=== PATIENT | female | born 1985 | race Caucasian/White ===

== ENCOUNTER 2019-02-08 09:07 | Observation (INO) | payer OTHER ==
[2019-02-08] VITALS (17 sets, daily range): BP systolic 103–149; BP diastolic 72–85; PULSE 79–114; RESP 10–22; Ht 160 cm; Wt 87.9 kg
[~2019-02-08] VITALS: Ht 160 cm; Wt 87.9 kg
[~2019-02-08 09:07] MED LIST: PREN1TAB49 PO; VANCOMYCIN 1 GM 250 ML IVPB SCH
[2019-02-08] MEDS ORDERED: TRAZ-149 ORAL (10:22)
[2019-02-08] MEDS ORDERED: QUET100T PO (10:22)
[2019-02-08] MEDS: SOD CHLORIDE 0.9% 1,000 ML IV SCH ×3 (11:10→19:50)
[2019-02-08] MEDS ORDERED: BUPIVACAINE 0.25%/EPI (SDV) 30 ML INJ ONE (12:06)
--- NOTE | 2019-02-08 12:50 | PREAC ---
Date/Time of Note Date/Time of Note DATE: 02/08/19 TIME: 12:49 Anesthesia Eval and Record Evaluation Time Pre-Procedure Interview DATE: 02/08/19 TIME: 12:49 Age 33 Sex female NPO: 8 hrs Preoperative diagnosis gallstones Planned procedure lap choly Past Medical History Past Medical History: Includes Psych: Depression Surgery & Anesthesia Issues No known issue Meds Anticoagulation: No Beta Jeremias within 24 hr: No Reason Beta Jeremias not given: Pt. not on B-Jeremias Reported Medications Quetiapine Fumarate* (Seroquel*) 100 Mg Tablet, 100 MG PO HS, #30 TAB 02/08/19 Trazodone Hcl* (Desyrel*) 50 Mg Tab, 1 TAB ORAL QHS 02/08/19 Discontinued Reported Medications Vits W-Ca,Fe,Fa(<1MG) () 1 Tab Tablet, 1 TAB PO DAILY 11/06/11 Current Medications Vancomycin HCl 250 ml @ 125 mls/hr PREOP IVPB Last administered on 02/08/19at 11:12; Admin Dose 125 MLS/HR; Start 02/08/19 at 06:30; Stop 02/08/19 at 18:00 Sodium Chloride 1,000 ml @ 75 mls/hr [id number] IV Last administered on 02/08/19at 11:10; Admin Dose 75 MLS/HR; Start 02/08/19 at 06:30; Stop 02/08/19 at 20:00 Meds reviewed: Yes Allergies Coded Allergies: Penicillins (Verified Allergy, Mild, RASH, 02/08/19) Allergies Reviewed: Yes Labs/Studies Labs Reviewed: Reviewed by anesthesiologist test: Negative Pre-procedure Exam Last vitals Vital Signs Date Temp Pulse Resp B/P (MAP) Pulse Ox O2 O2 Flow FiO2 Time Delivery Rate 02/08/19 97.3 81 16 103/75 100 Room Air 10:31 (84) Airway: Adequate mouth opening, Adequate thyromental dist Mallampati: Mallampati III Teeth: Normal Lung: Normal Heart: Normal ASA Physical Status ASA physical status: 2 Emergency: None Pre-operative Attestations Prior to commencing anesthesia and surgery, the patient was re-evaluated, there was verification of: *The patient's identity *The results of appropriate recent lab work and preoperative vital signs *The above evaluation not changing prior to induction *Anesthetic plan, risk benefits, alternative and complications discussed with patient/family; questions answered; patient/family understands, accepts and wishes to proceed. CANDIDO DALTON DO Feb 08, 2019 12:50
--- NOTE | 2019-02-08 12:54 | HPN ---
Date/Time of Note Date/Time of Note DATE: 02/08/19 TIME: 12:53 Interval H&P Admission Note Pt. seen H&P reviewed: No system changes LETITIA JEFFERS MD Feb 08, 2019 12:54
[2019-02-08] MEDS ORDERED: ONDANSETRON 4 MG INJ IV PRN ×2 (13:00→15:30)
[2019-02-08] MEDS ORDERED: OXYCODONE/ACETAMINOPHEN (5/325) TAB PO PRN ×2 (13:00)
[2019-02-08] MEDS ORDERED: HYDROmorphONE 1 MG/5 ML IV SYRINGE IV PRN ×2 (13:00)
[2019-02-08] MEDS ORDERED: LIDOCAINE 2% (SDV) 5 ML INJ ONE (13:06)
[2019-02-08] MEDS ORDERED: ROCURONIUM 50 MG INJ ONE (13:06)
[2019-02-08] MEDS ORDERED: MIDAZOLAM 1 MG/ML 2 ML INJ ONE (13:06)
[2019-02-08] MEDS ORDERED: ROPIVACAINE 0.5 % 30 ML VIAL ONE (13:06)
[2019-02-08] MEDS ORDERED: PROPOFOL 20 ML ONE (13:06)
[2019-02-08] MEDS ORDERED: ROPIVACAINE 0.2% 20 ML VIAL ONE (13:17)
[2019-02-08] MEDS ORDERED: ONDANSETRON 4 MG INJ ONE (13:27)
[2019-02-08] MEDS ORDERED: FAMOTIDINE 20 MG INJ ONE (13:27)
[2019-02-08] MEDS ORDERED: FENTAnyl 50 MCG/ML VIAL ONE (14:22)
[2019-02-08] MEDS ORDERED: SUGAMMADEX SODIUM 200 MG/2 ML VIAL IV ONE (15:05)
[2019-02-08] MEDS ORDERED: LACTATED RINGER'S 1,000 ML IV SCH (15:09)
--- NOTE | 2019-02-08 15:20 | PAC ---
Date/Time of Note Date/Time of Note DATE: 02/08/19 TIME: 15:19 Post-Anesthesia Notes Post-Anesthesia Note Last documented vital signs Vital Signs Date Temp Pulse Resp B/P (MAP) Pulse Ox O2 O2 Flow FiO2 Time Delivery Rate 02/08/19 98 102 19 130/65 100 Room Air 1520 Activity: WNL Respiratory function: WNL Cardiovascular function: WNL Mental status: Baseline Pain reasonably controlled: Yes Hydration appropriate: Yes Nausea/Vomiting absent: Yes CANDIDO DALTON DO Feb 08, 2019 15:20
--- NOTE | 2019-02-08 15:25 | OPR ---
Date/Time of Note Date/Time of Note DATE: 02/08/19 TIME: 15:15 Operative Report Procedure Date: Feb 08, 2019 Preoperative Diagnosis Cholelithiasis/chronic cholecystitis Postoperative Diagnosis 1. Cholelithiasis/chronic cholecystitis 2. Peritoneal adhesions Operation/Procedure Performed 1. Laparoscopic cholecystectomy (modifier 22) 2. Laparoscopic lysis of adhesions Surgeon see signature line Rheumatology Specialist Cortes Lora MD Anesthesia Type: general Anesthesiologist: CANDIDO DALTON DO Estimated Blood Loss: 150 - 200 ml's Transfusion none Specimen Gallbladder. Biliary cultures Grafts/Implants none Complications none Pt Condition Post Procedure: stable Disposition: PACU Indications The patient is a obese 33-year-old female who presented to the office with right upper quadrant abdominal pain. The patient had clinical signs and symptoms of chronic cholecystitis and biliary colic which was confirmed via an ultrasound which showed the presence of gallstones. The patient was scheduled for laparoscopic cholecystectomy; possible open as definitive treatment to prevent further sequelae of gallstone disease which include but are not limited to: Gangrenous cholecystitis, choledocholithiasis, gallstone pancreatitis, ascending cholangitis, etc. All risks and benefits of the procedure including but not limited to: Wound infection, excessive bleeding, common bile duct injury, postoperative biliary leak, retained common bile duct stone, injury to intra- abdominal organs, conversion to open procedure, possible need for subsequent surgeries, etc. were all explained to the patient in full detail. She fully understood and wished to proceed with the procedure. Informed consent was therefore obtained. Procedure Description The patient was brought to the operating room and placed supine on the operating table. Bilateral sequential compression devices were placed on both lower extremities. A dose of broad-spectrum perioperative intravenous antibiotics was given. After the induction of smooth general endotracheal anesthesia the patient's abdomen was prepped and draped in the standard surgical fashion. A tap block was performed by the anesthesiologist prior to prepping the patient will be documented separately by him patient has a lower midline incision from prior surgery. After performance of the surgical timeout a 5 mm incision was made in the superior umbilicus and a Veress needle was used to access the intra- abdominal cavity atraumatically. Pneumoperitoneum was then obtained and the Veress needle was exchanged for a 5 mm trocar through which a 5 mm laparoscope was placed. Diagnostic laparoscopy showed adhesions of the omentum to the patient's prior lower midline incision. There also adhesions to the right upper quadrant in the area of our port placement. A 12 mm port was then placed under direct vision in the sub-xiphoid region. Laparoscopic lysis of adhesions was performed using the efrem to take down the adhesions in the right upper quadrant to enable for placement. Two 5 mm ports were then placed under direct vision in the right upper quadrant. All port sites were anesthetized with 0.25% Marcaine with epinephrine prior to incision. A distended gallbladder was identified in the right upper quadrant. It was thick-walled and erythematous sales and marketing assistant with severe chronic inflammation. There were dense adhesions of the omentum to the anterior surface of the gallbladder. These were tediously taken down using combination of blunt dissection and hook electrocautery. Using atraumatic graspers the gallbladder was then able to be grasped and retracted superiorly and laterally exposing the area of Hu's pouch. There was thick inflammatory adhesions and scarring in this area. Tedious dissection was done above that which is usual and customary for procedure of this type in order to identify the cystic duct structures. Gallbladder was then mobilized along its medial and lateral attachments through the liver in order to gain better exposure and mobility. After significant amount of time of tedious dissection above that which is usual and customary for procedure of this type the cystic duct was identified as it entered straight into the neck of the gallbladder. Cystic duct and common duct anatomy was confirmed multiple times using fluorescence imaging and indocyanine green dye. In the course of posterior dissection of the cystic duct the cystic artery was entered and bleeding was encountered. Most of the blood loss of the procedure was during this portion. Carefully, the bleeding from the cystic artery was controlled using hemoclips. Cystic duct was then circumferentially dissected free of surrounding tissues and clipped proximally and distally x 3 and transected using EndoShears. Cystic duct anatomy was confirmed prior to transection using fluorescence imaging and indocyanine green dye. The gallbladder was then dissected off the liver bed using electrocautery. Because of the chronic inflammation there was obliteration of the natural planes of the gallbladder to the liver bed. The posterior portion of the gallbladder was also intrahepatic. For these reasons, and amount of time which is in excess of that which is usual and customary for procedure of this type was needed to safely dissect the gallbladder off of the liver bed. Once completely free the gallbladder was placed in an Endo Catch bag and withdrawn through the subxiphoid port site and passed off the field as specimen. The subxiphoid port site had to be enlarged to accommodate the large size of the gallbladder. Hemostasis was inspected for and obtained on the liver bed using a combination of hook electrocautery and placement of fibrillar. The abdomen was then irrigated with several liters of warm normal saline and the irrigant returned crystal clear. The fascia of the subxiphoid port site was then reapproximated using a althea-close device. Pneumoperitoneum was then released and all remaining trochars were withdrawn under direct vision. The subcutaneous tissues were irrigated with more warm normal saline. The skin was then reapproximated using 4-0 Monocryl sutures in subcuticular fashion. The incisions were cleaned and Dermabond was applied to the incisions and the rowan ent was awoken from anesthesia and transported to the recovery room in stable condition. All counts were correct at the end of the case x 2. Again given the complexity of this procedure the presence of an attending surgeon sales and marketing assistant was required and an amount of time in excess which of that which is usual and customary for procedure of this type was needed to safely complete the procedure laparoscopically. Therefore, modifier 22 should be applied. LETITIA JEFFERS MD Feb 08, 2019 15:25
[2019-02-08] MEDS ORDERED: METOCLOPRAMIDE 10 MG INJ IV PRN (15:30)
[2019-02-08] MEDS ORDERED: metroNIDAZOLE 500 MG/NS (PMX) 100 ML IVPB SCH (15:30)
[2019-02-08] MEDS: HYDROmorphONE 1 MG/5 ML IV SYRINGE IV PRN ×2 (15:30→16:29)
[2019-02-08] MEDS ORDERED: GLUCOSE GEL 15 GRAM TUBE BUCCAL PRN (16:00)
[2019-02-08] MEDS ORDERED: GLUCAGON 1 MG INJ IM PRN (16:00)
[2019-02-08] MEDS ORDERED: DEXTROSE 50% 50 ML SYRINGE IV PRN ×2 (16:00)
[2019-02-08] MEDS ORDERED: GLUCOSE GEL 15 GRAM TUBE PO PRN ×2 (16:00)
[2019-02-08] MEDS: INSULIN ASPART [NOVOLOG] 3 ML PEN SC SCH ×2 (16:35→20:51)
[2019-02-08] MEDS: CIPROFLOXACIN 400MG/D5W 200 ML IVPB SCH (17:04)
[2019-02-08] MEDS: ACETAMINOPHEN 325 MG TAB PO PRN ×2 (17:39→21:12)
[2019-02-08] MEDS ORDERED: INSULIN ASPART [NOVOLOG] 3 ML PEN SC SCH (18:00)
[2019-02-08] MEDS: metroNIDAZOLE 500 MG/NS (PMX) 100 ML IVPB SCH (18:26)
[2019-02-08] MEDS ORDERED: HYDROCODONE/APAP (5/325) TAB PO PRN (18:30)
[2019-02-08] MEDS ORDERED: morphine 4 MG/ML VIAL IV PRN (18:30)
[2019-02-08] MEDS: FAMOTIDINE 20 MG TAB PO SCH (20:38)
[2019-02-08] MEDS: DOCUSATE SODIUM 100 MG CAP PO SCH (20:38)
[2019-02-09] MEDS ORDERED: ACCU-CHEK XX SCH (02:00)
[2019-02-09] MEDS: metroNIDAZOLE 500 MG/NS (PMX) 100 ML IVPB SCH ×2 (02:30→10:49)
[2019-02-09] MEDS: ACETAMINOPHEN 325 MG TAB PO PRN (02:53)
[2019-02-09] MEDS: CIPROFLOXACIN 400MG/D5W 200 ML IVPB SCH (03:50)
[2019-02-09] MEDS: HYDROCODONE/APAP (5/325) TAB PO PRN ×2 (06:40→10:45)
[2019-02-09] MEDS: INSULIN ASPART [NOVOLOG] 3 ML PEN SC SCH ×2 (07:50→12:48)
[2019-02-09 07:54] VITALS: BP 119/79; PULSE 79; RESP 18
[2019-02-09] MEDS: FAMOTIDINE 20 MG TAB PO SCH (08:43)
[2019-02-09] MEDS: DOCUSATE SODIUM 100 MG CAP PO SCH (08:43)
--- NOTE | 2019-02-09 09:26 | PN ---
Date/Time of Note Date/Time of Note DATE: 02/09/19 TIME: 09:23 Assessment/Plan Lines/Catheters IV Catheter Type (from Nrsg): Peripheral IV Assessment/Plan Assessment/Plan 33-year-old female status post laparoscopic cholecystectomy, laparoscopic lysis of adhesions postop day #1 * LFTs normal * Pain is controlled * Out of bed/incentive spirometry * Hep-Lock IV fluids * Surgically stable for discharge home. Follow-up in office in 2 weeks Subjective 24 Hr Interval Summary Stable overnight. Pain is now controlled. Tolerating diet. Afebrile. Hemodynamically stable Exam/Review of Systems Vital Signs Vitals Vital Signs Date Temp Pulse Resp B/P (MAP) Pulse Ox O2 O2 Flow FiO2 Time Delivery Rate 02/09/19 98.4 79 18 119/79 99 Room Air 07:54 (92) Intake and Output 02/08/19 02/08/19 02/09/19 1414:59 22:59 06:59 IntakeIntake Total 250 ml 3065 ml 1400 ml OutputOutput Total 200 ml BalanceBalance 250 ml 2865 ml 1400 ml Exam Free Text/Dictation GENERAL: Awake, alert, oriented x 3. No acute distress. SKIN: No jaundice. HEENT: PERRLA, EOMI, No Scleral Icterus NECK: Supple without JVD CARDIOVASCULAR: S1S2, regular rate and rhythm. No murmurs appreciated. RESPIRATORY: Clear to auscultation bilaterally. ABDOMEN: Soft, bowel sounds present, nondistended, appropriate incisional tenderness to palpation. No rebound or guarding INCISIONS: Clean, dry, intact EXTREMITIES: Free range of motion x 4. No cyanosis, edema, or clubbing. Results Result Diagram: 02/09/19 0425 02/09/19 0425 LETITIA JEFFERS MD Feb 09, 2019 09:26
--- NOTE | 2019-02-09 09:30 | DS ---
Date/Time of Note Date/Time of Note DATE: 02/09/19 TIME: 09:28 Discharge Summary Admission/Discharge Info Admit Date/Time Feb 08, 2019 at 15:29 Discharge Date/Time February 09, 2019 Discharge Diagnosis Cholelithiasis/chronic cholecystitis Patient Condition: Stable Procedures Laparoscopic cholecystectomy, laparoscopic lysis of adhesions Hx of Present Illness The patient is a obese 33-year-old female who presented to the office with right upper quadrant abdominal pain. The patient had clinical signs and symptoms of chronic cholecystitis and biliary colic which was confirmed via an ultrasound which showed the presence of gallstones. The patient was scheduled for laparoscopic cholecystectomy; possible open as definitive treatment to prevent further sequelae of gallstone disease. Hospital Course Patient underwent laparoscopic cholecystectomy, laparoscopic lysis of adhesions on the morning of admission. She was admitted for observation for pain control given severity of her chronic cholecystitis. She is hemodynamically stable on postoperative day #1 with her pain controlled. LFTs are normal. Home Meds Discontinued Reported Medications Quetiapine Fumarate* (Seroquel*) 100 Mg Tablet, 100 MG PO HS, #30 TAB 02/08/19 Trazodone Hcl* (Desyrel*) 50 Mg Tab, 1 TAB ORAL QHS 02/08/19 Vits W-Ca,Fe,Fa(<1MG) () 1 Tab Tablet, 1 TAB PO DAILY 11/06/11 Follow-up Plan Follow-up in office in 2 weeks Primary Care Provider Not On Staff Doctor Time spent on discharge: > 30 minutes Pending Labs Laboratory Tests Test 02/08/19 15:52 02/08/19 17:34 02/08/19 20:48 02/09/19 02:27 Bedside 230 269 226 152 Glucose mg/dL (70-220) mg/dL (70-220) mg/dL (70-220) mg/dL (70-220) Test 02/09/19 04:25 02/09/19 06:27 02/09/19 08:42 White Blood 9.7 Count 10^3/ul (4.8-10 .8) Red Blood 3.45 Count 10^6/ul (4.20-5 .40) Hemoglobin 9.9 g/dl (12.0-16.0 ) Hematocrit 29.5 % (37.0-47.0) Mean 85.5 Corpuscular fl (82.0-101.0) Volume Mean 28.7 Corpuscular pg (29.0-33.0) Hemoglobin Mean 33.6 Corpuscular g/dl (32.0-37.0 Hemoglobin Conc ) ent Red Cell 12.1 Distribution % (11.5-14.5) Width Platelet Count 243 10^3/UL (140-41 5) Mean Platelet 9.1 Volume fl (7.4-10.4) Immature 0.300 Granulocytes % % (0.001-0.429) Neutrophils % 78.2 % (39.0-77.0) Lymphocytes % 14.1 % (15.0-51.0) Monocytes % 6.8 % (0.0-11.0) Eosinophils % 0.4 % (0.0-7.0) Basophils % 0.2 % (0.0-2.0) Nucleated Red 0.0 Blood Cells % /100WBC (0.0-0. 0) Immature 0.030 Granulocytes # 10^3/ul (0.0-0. 031) Neutrophils # 7.6 10^3/ul (1.6-7. 5) Lymphocytes # 1.4 10^3/ul (0.8-2. 9) Monocytes # 0.7 10^3/ul (0.3-0. 9) Eosinophils # 0.0 10^3/ul (0.0-0. 5) Basophils # 0.0 10^3/ul (0.0-0. 1) Nucleated Red 0.0 Blood Cells # 10^3/ul (0.0-0. 0) Sodium Level 138 mmol/L (135-144 ) Potassium 3.7 Level mmol/L (3.5-5.1 ) Chloride Level 110 mmol/L (97-110) Carbon Dioxide 24 Level mmol/L (21-31) Anion Gap 4 (5-13) Blood Urea 9 mg/dl (7-20) Nitrogen Creatinine 0.60 mg/dl (0.44-1.0 0) Est Glomerular > 60 Filtrat mL/min (>60) Rate mL/min Glucose Level 171 mg/dl (70-220) Calcium Level 8.0 mg/dl (8.4-10.2 ) Total 0.5 Bilirubin mg/dl (0.2-1.3) Direct 0.00 Bilirubin mg/dl (0.00-0.2 0) Indirect 0.5 Bilirubin mg/dl (0-1.1) Aspartate Amino 36 IU/L (15-46) Transf (AST/SGO T) Alanine 39 IU/L (13-69) Aminotransferas e (ALT/SGPT) Alkaline 46 Phosphatase IU/L (42-121) Total Protein 5.9 g/dl (6.1-8.1) Albumin 3.0 g/dl (3.3-4.9) Globulin 2.90 g/dl (1.3-3.2) Albumin/Globuli 1.03 n Ratio Lab Scanned REFERENCE Report LAB [id number] Bedside 112 Glucose mg/dL (70-220) LETITIA JEFFERS MD Feb 09, 2019 09:30
== END 2019-02-09 14:23 | disposition home or self-care (01) ==
LOC: SDS 09:07 → REC 15:29 → MS1 16:56
PROVIDERS: ADMIT Surgery; ATTEND Surgery
DX: K80.10 Calculus of gallbladder with chronic cholecystitis without obstruction (principal); E11.9 Type 2 diabetes mellitus without complications; F32.9 Major depressive disorder, single episode, unspecified; Z79.4 Long term (current) use of insulin
CPT/HCPCS: 47562; 80053; 82962; 85025; 87070; 87075; 87102; 87116; 88304; J0744; J1170; J1815; J2250; J2405; J2765; J2795; J3010; J3370; J7030; Z7500; Z7512; Z7610; 99217; G0378

== ENCOUNTER 2019-03-01 19:05 | Emergency (ER) | payer OTHER ==
[~2019-03-01] VITALS: Ht 167.6 cm; Wt 87.8 kg
[~2019-03-01 19:05] MED LIST changes: +BEN25 PO; -PREN1TAB49 PO; -VANCOMYCIN 1 GM 250 ML IVPB SCH
[2019-03-01 19:07] VITALS: BP 139/98; PULSE 85; RESP 16; Ht 167.6 cm; Wt 87.8 kg
--- NOTE | 2019-03-01 19:57 | ERD ---
ER Documentation Chief Complaint Chief Complaint L eye swelling x2 days, referred by PMD for possible allergic reaction HPI 33-year-old female presents with some swelling of the left upper eyelid for last 2 days. She recently completed a course of unknown antibiotics for UTI. She had a cholecystectomy approximately 1 month ago. She denies abdominal pain, vomiting, visual changes, discharge, pain, redness. He complains of mild itching. The swelling intermittently resolves and then returns. Patient denies any previous allergies. ROS All systems reviewed and are negative except as per history of present illness. Medications Home Meds Active Scripts Diphenhydramine Hcl* (Benadryl*) 25 Mg Cap, 25 MG PO Q6, #15 CAP Prov:CARLA SINGER MD 03/01/19 Allergies Allergies: Coded Allergies: Penicillins (Verified Allergy, Mild, RASH, 02/08/19) PMhx/Soc History of Surgery: Yes (C/S X2/ APPY) Anesthesia Reaction: No Hx Neurological Disorder: No Hx Respiratory Disorders: No Hx Cardiac Disorders: No Hx Psychiatric Problems: No Hx Miscellaneous Medical Probl: No Hx Alcohol Use: No Hx Substance Use: No Hx Tobacco Use: No Smoking Status: Never smoker FmHx Family History: diabetes Physical Exam Vitals Vital Signs Date Temp Pulse Resp B/P (MAP) Pulse Ox O2 O2 Flow FiO2 Time Delivery Rate 03/01/19 99.1 85 16 139/98 98 19:07 (112) Physical Exam Const: No acute distress Head: Atraumatic Eyes: Normal Conjunctiva. Eyes Karl and extraocular movements intact. Left upper eyelid swelling. No proptosis. No erythema or warmth or discharge. ENT: Normal External Ears, Nose and Mouth. Neck: Full range of motion. No meningismus. Resp: Clear to auscultation bilaterally Cardio: Regular rate and rhythm, no murmurs Abd: Soft, non tender, non distended. Normal bowel sounds Skin: No petechiae or rashes Back: No midline or flank tenderness Ext: No cyanosis, or edema Neur: Awake and alert Psych: Normal Mood and Affect Results 24 hrs Current Medications Medications Dose Sig/Nickolas Start Time Status Last (Trade) Ordered Route PRN Stop Time Admin Dose Reason Admin 16 mg ONCE ONCE 03/01/19 Dexamethasone PO 20:00 (Decadron) 03/01/19 20:01 50 mg ONCE ONCE 03/01/19 Diphenhydrami IM 20:00 ne HCl 03/01/19 20:01 (Benadryl) Procedures/MDM Patient presents with some left upper eyelid swelling which is intermittent which correlates with recent unspecified antibiotics suggesting allergic reaction. Current signs or symptoms do not suggest orbital cellulitis or preseptal cellulitis or cellulitis. Patient has no current visual changes or pain to suggest ulcers, additional eye emergency. Patient was given Benadryl 50 mg IM and Decadron 60 mg by mouth as well as cold compresses. Patient will be treated with continuation of cold compresses, Benadryl, primary care and ophthalmology follow-up for persistent symptoms of the wrist return immediately for warmth, redness, fevers, discharge, visual changes. Patient has no signs or symptoms of visual changes, visual field deficits. There are no signs or symptoms to suggest orbital cellulitis, retinal detachment, optic neuritis, retinal artery ischemia, dendritic lesions, ulcers, threats to vision or additional eye emergencies. Doubt acute glaucoma. Patient will be discharged home with recommendations for primary care and ophthalmology follow-up within the next 1-2 days. They should otherwise return to the ER for persistent or worsening symptoms. Departure Diagnosis: Primary Impression: Allergic reaction Encounter type: initial encounter Qualified Codes: T78.40XA - Allergy, unspecified, initial encounter Condition: Stable Patient Instructions: Allergic Reaction, Drug Additional Instructions: Apply cold compresses at home. Recheck for redness, fevers, visual changes, discharge immediately. CARLA SINGER MD Mar 01, 2019 19:57
[2019-03-01] MEDS ORDERED: DEXAMETHASONE 4 MG TAB PO ONE (20:00)
[2019-03-01] MEDS ORDERED: DIPHENHYDRAMINE 50 MG INJ IM ONE (20:00)
== END 2019-03-01 20:16 | disposition home or self-care (01) ==
LOC: FTE 19:05
DX: H02.844 Edema of left upper eyelid (principal)
CPT/HCPCS: 96372; J1200; Z7502; Z7610